=== PATIENT | female | born 1985 | race Asian ===

== ENCOUNTER 2017-01-27 07:06 | Day surgery (SDC) | payer MEDICAID, OTHER ==
--- NOTE | 2017-01-26 16:13 | PCM.PREANE ---
Preanesthetic Assessment - ANESTHESIA/TRANSFUSION/FAMILY HX Anesthesia/Transfusion History: No Prior Anesthesia Other Type of Anesthesia Reaction Comment: pt adopted, does not know if any family hx of anesthesia problems - REVIEW OF SYSTEMS Constitutional: Reports: no symptoms BLUNGER: Reports: no symptoms Respiratory: Reports: no symptoms Cardiovascular: Reports: no symptoms GI: Reports: no symptoms Other: Reports: none - PHYSICAL ASSESSMENT Height: 5 ft Weight: 68.946 kg ASA Class: 2 Mental Status: alert & oriented x3 Airway Class: Mallampati = 2 Dentition: Reports: normal dentition Thyro-Mental Finger Breadths: 3 Mouth Opening Finger Breadths: 3 ROM/Head Extension: full Respiratory Status: lungs clear to auscultation bilaterally Cardiovascular Status: regular rate & rhythm, normal S1, S2, no murmur, blood pressure WNL - ALLERGIES Allergies/Adverse Reactions: Allergies Allergy/AdvReac Type Severity Reaction Status Date / Time No Known Allergies Allergy Verified 07/17/16 18:48 - ANESTHESIA PLAN Free Text/Narrative:: Informed pt to use advair now and albuterol just prior to going to OR. Pt expresses understanding. Anesthesia Type Planned: general anesthesia, MAC - ACKNOWLEDGEMENTS Pt an appropriate candidate for the planned anesthesia: Yes Alternatives and risks of anesthesia discussed w pt/guardian: Yes Pt/Guardian understands and agree with anesthesia plan: Yes PreAnesthesia Questionnaire - Past Health History Medical/Surgical History: Denies Medical/Surgical History HEENT History: Reports: Other (see below) Other HEENT History: wears glasses Cardiovascular History: Reports: None Respiratory History: Reports: Asthma (3 Rx currently for asthma management ( she states it is well controlled on this)) Gastrointestinal History: Reports: Other (see below) Other Gastrointestinal History: occasional heartburn Genitourinary History: Reports: None 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: Musculoskeletal History: Reports: Other (see below) Other Musculoskeletal History: occasional back pain Neurological History: Reports: None Psychiatric History: Reports: Anxiety, Depression Endocrine/Metabolic History: Reports: Obesity/BMI 30+ Hematologic History: Reports: None Immunologic History: Reports: None Oncologic (Cancer) History: Reports: None Dermatologic History: Reports: None - Infectious Disease History Infectious Disease History: Reports: None - Past Surgical History Head Surgeries/Procedures: Reports: None - SUBSTANCE USE Smoking Status *Q: Current Some Day Smoker Tobacco Use Within Last Twelve Months: Cigarettes Second Hand Smoke Exposure: Yes Recreational Drug Use History: Yes - HOME MEDS Home Medications: Home Meds Sertraline HCl [Zoloft] 100 mg PO DAILY 07/17/16 [History] Albuterol [Proventil HFA] 1 - 2 puff INH ASDIRECTED PRN 01/23/17 [History] Fexofenadine HCl [Allergy Relief] 1 tab PO ASDIRECTED PRN 01/23/17 [History] Fluticasone Propionate [Flonase Allergy Relief] 1 - 2 spray NASBOTH DAILY [History] Fluticasone/Salmeterol [Advair 250-50 Diskus] 1 puff INH BID 01/23/17 [History] Ibuprofen [Motrin] 1 tab PO ASDIRECTED PRN 01/23/17 [History] Montelukast Sodium 1 tab PO DAILY 01/23/17 [History] traZODone HCl [Trazodone HCl] 200 tab PO BEDTIME 01/23/17 [History] - CURRENT (IN HOUSE) MEDS Current Meds: Current Medications Lactated Ringer's (Ringers, Lactated) 1,000 mls @ 125 mls/hr IV ASDIRECTED YOVANY Sodium Chloride (Saline Flush) 10 ml FLUSH ASDIRECTED PRN PRN Reason: Keep Vein Open Sodium Chloride (Saline Flush) 2.5 ml FLUSH ASDIRECTED PRN PRN Reason: Keep Vein Open
[~2017-01-27 07:06] MED LIST: Lactated Ringers 1,000 ML IV SCH; Sodium Chloride 0.9% 10 ML Syringe FLUSH PRN; Sodium Chloride 0.9% 2.5 ML Syringe FLUSH PRN
[2017-01-27] MEDS ORDERED: Ondansetron 4 MG/2 ML SDV ONE (07:16)
[2017-01-27] MEDS ORDERED: Midazolam 1 MG/ML 2 ML SDV ONE (07:16)
[2017-01-27] MEDS ORDERED: Lidocaine 2% 5 ML SDV ONE (07:16)
[2017-01-27] MEDS ORDERED: Propofol 200 MG/20 ML SDV ONE (07:16)
[2017-01-27] MEDS ORDERED: fentaNYL 100 MCG/2 ML SDV ONE (07:16)
[2017-01-27] MEDS ORDERED: Bupivacaine 0.25%/EPINEPHrine 1:200,000 10 ML SDV ONE (07:32)
[2017-01-27] MEDS ORDERED: Acetaminophen/HYDROcodone 325-5 MG Tab PO PRN (08:00)
[2017-01-27] MEDS ORDERED: Bupivacaine 0.25%/EPINEPHrine 1:200,000 10 ML SDV INJECT ONE (08:00)
[2017-01-27] MEDS ORDERED: ceFAZolin 2 GM in Premix Bag 1 BAG IV ONE (08:00)
[2017-01-27] MEDS ORDERED: ceFAZolin 1 GM Vial ONE (08:43)
[2017-01-27] MEDS ORDERED: HYDROmorphone 2 MG/ML Syringe ONE (09:42)
[2017-01-27] MEDS: fentaNYL 100 MCG/2 ML SDV IVPUSH PRN ×2 (10:19→10:24)
--- NOTE | 2017-01-27 11:40 | PCM.POSTAN ---
POST ANESTHESIA ASSESSMENT - MENTAL STATUS Mental Status: alert, oriented - RESPIRATORY Respiratory Status: respiratory rate WNL, airway patent, O2 saturation stable - CARDIOVASCULAR CV Status: pulse rate WNL, blood pressure stable - GASTROINTESTINAL GI Status: no symptoms - POST OP HYDRATION Hydration Status: adequate & stable
--- NOTE | 2017-01-27 11:40 | PCM48HPAN ---
Post Anesthesia Note - EVALUATION WITHIN 48HRS OF ANESTHETIC Vital Signs in Normal Range: Yes Patient Participated in Evaluation: Yes Respiratory Function Stable: Yes Airway Patent: Yes Cardiovascular Function Stable: Yes Hydration Status Stable: Yes Pain Control Satisfactory: Yes Nausea and Vomiting Control Satisfactory: Yes Mental Status Recovered: Yes
[2017-01-27 14:21] VITALS: BP 100/59
--- NOTE | 2017-01-30 08:49 | PCM.OPNOTE ---
- General Post-Op/Procedure Note Date of Surgery/Procedure: 01/27/17 Operative Procedure(s): right radial tunnel release Pre Op Diagnosis: right radial nerve compression Post-Op Diagnosis: Same Anesthesia Technique: General LMA, Local Primary Surgeon: Oliva Boogie Machine Try Out Setter: Tonya Demarco Complications: None Condition: Good
--- NOTE | 2017-01-30 13:03 | OR ---
Cancelled dictation MTDD
--- NOTE | 2017-01-30 17:12 | OR ---
SURGEON: DAIN NICHOLSON MD DATE OF PROCEDURE: 01/27/2017 PREOPERATIVE DIAGNOSIS: Right radial tunnel syndrome. POSTOPERATIVE DIAGNOSIS: Right radial tunnel syndrome. PROCEDURE: Right radial tunnel release, upper forearm. ANESTHESIA: General LMA and local anesthesia. PUBLIC HEALTH SANITARIAN TECHNICIAN: Tonya Demarco. INDICATIONS: Ms. Hale is a 31-year-old female with right radial nerve compression. Risks and benefits of release were discussed with her. She has previously had an injection that did provide some relief to this area but it recurred. She would like definitive management. Risks and benefits of release were discussed with her and she was in agreement to proceed. PROCEDURE IN DETAIL: After informed consent was obtained and placed on the chart, the patient was brought to the operating theater and laid in the supine position. After adequate general anesthesia was obtained, the area was prepped and draped in a normal fashion. Incision curvilinear on dorsal radial aspect of the forearm was planned. Dissection was carried down through the skin and subcutaneous tissues first using a #15 blade and then using scissor dissection to carefully protect the superficial branches of the nerve. Once adequately dissected, attention was then paid to the muscle layer. The extensor muscles were visualized and the change of color between the extensor was noted and dissection was carried in between. The superficial radial nerve was located here, and dissection was carried back proximally to the common juncture. The common radial nerve was located, and there were several vascular lesions tethering this. These were clamped and transected using a red clip. The deep branch was then followed to its compression under the supinator. The supinator was divided here, and the nerve was appreciated to be appropriately released without any areas of compression at the end of this. Several vascular lesions were noted, clamped, and transected. Once adequately released, the area was copiously irrigated. The tourniquet was desufflated. Meticulous hemostasis was ensured. The wound was then closed using deep Monocryl stitches and then a running 4-0 subcuticular for the skin. The patient tolerated this well. All counts of needles were correct at the end the case. FOLLOWUP INSTRUCTIONS: The patient will see us in clinic in 10 to 14 days or sooner if any problems, questions, or concerns. She was dressed with Steri-Strips, and 4-inch Harish wrap with ABD. She tolerated this well. MELISSA / MARCEL /[id number]
== END 2017-01-27 11:08 | disposition home or self-care (01) ==
LOC: MW.SDS 07:06
PROVIDERS: ATTEND Plastic Surgery
PROC: 01N60ZZ Release Radial Nerve, Open Approach (ICD-10-PCS; principal; 2017-01-27)
DX: G56.31 Lesion of radial nerve, right upper limb (principal); J45.909 Unspecified asthma, uncomplicated; F17.210 Nicotine dependence, cigarettes, uncomplicated; F32.9 Major depressive disorder, single episode, unspecified; F41.9 Anxiety disorder, unspecified; Z79.51 Long term (current) use of inhaled steroids; Z79.899 Other long term (current) drug therapy
CPT/HCPCS: 64708; 81025; A9270; J0690; J1170; J2250; J2405; J3010; J7120; 01810; J2704

== ENCOUNTER 2020-05-18 07:41 | Day surgery (SDC) | payer BC, MEDICAID ==
[~2020-05-18 07:41] MED LIST changes: +Bupivacaine 0.25% 10 ML SDV ONE; +Desflurane 240 ML Bottle ONE; +Dexamethasone 4 MG/ML 5 ML MDV ONE; +Glycopyrrolate 0.2 MG/ML SDV ONE; +Ketorolac 30 MG/ML SDV ONE; -Lactated Ringers 1,000 ML IV SCH; +Methylene Blue 50 MG/10 ML Ampule ONE; +Midazolam 1 MG/ML 2 ML SDV ONE; +Morphine 10 MG/ML Syringe ONE; +Ondansetron 4 MG/2 ML SDV ONE; +Propofol 200 MG/20 ML SDV ONE; +Rocuronium Bromide 50 MG/5 ML Syringe ONE; -Sodium Chloride 0.9% 10 ML Syringe FLUSH PRN; -Sodium Chloride 0.9% 2.5 ML Syringe FLUSH PRN; +Sodium Chloride 0.9% 20 ML ONE; +Sugammadex Sodium 200 MG/2 ML VIAL ONE; +ceFAZolin 1 GM Vial ONE; +fentaNYL 100 MCG/2 ML SDV ONE
[2020-05-18] MEDS: Lactated Ringers 1,000 ML IV SCH ×2 (08:08→20:09)
--- NOTE | 2020-05-18 08:11 | PCM.PREANE ---
Preanesthetic Assessment - Anesthesia/Transfusion/Family Hx Anesthesia History: Prior Anesthesia Without Reaction Other Type of Anesthesia Reaction Comment: pt adopted, does not know if any family hx of anesthesia problems Family History of Anesthesia Reaction: No Transfusion History: No Prior Transfusion(s) Intubation History: Unknown - Review of Systems General: No Symptoms Pulmonary: No Symptoms Cardiovascular: No Symptoms Gastrointestinal: No Symptoms Neurological: No Symptoms Other: Reports: None - Physical Assessment Vital Signs: Last Vital Signs Temp 36.4 C 05/18/20 07:50 Pulse 83 05/18/20 07:50 Resp 16 05/18/20 07:50 BP 142/106 H 05/18/20 07:50 Pulse Ox 97 05/18/20 07:50 Height: 5 ft 1 in Weight: 83.461 kg ASA Class: 2 Mental Status: Alert & Oriented x3 Airway Class: Mallampati = 1 Dentition: Reports: Normal Dentition Thyro-Mental Finger Breadths: 3 Mouth Opening Finger Breadths: 3 ROM/Head Extension: Full Lungs: Clear to Auscultation, Normal Respiratory Effort Cardiovascular: Regular Rate, Regular Rhythm - Allergies Allergies/Adverse Reactions: Allergies Allergy/AdvReac Type Severity Reaction Status Date / Time animal dander Allergy Difficulty Verified 05/12/20 08:37 Breathing - Blood Blood Available: No - Anesthesia Plan Pre-Op Medication Ordered: None - Acknowledgements Anesthesia Type Planned: General Anesthesia Pt an Appropriate Candidate for the Planned Anesthesia: Yes Alternatives and Risks of Anesthesia Discussed w Pt/Guardian: Yes Pt/Guardian Understands and Agrees with Anesthesia Plan: Yes PreAnesthesia Questionnaire - Past Health History Medical/Surgical History: Denies Medical/Surgical History HEENT History: Reports: Allergic Rhinitis, Other (See Below) Other HEENT History: wears glasses Cardiovascular History: Reports: None Respiratory History: Reports: Asthma (moderate/severe) Gastrointestinal History: Reports: GERD Other Gastrointestinal History: occasional heartburn Genitourinary History: Reports: None 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 radial tunnel syndrome) Psychiatric History: Reports: Depression Endocrine/Metabolic History: Reports: Obesity/BMI 30+ Hematologic History: Reports: None Immunologic History: Reports: None Oncologic (Cancer) History: Reports: None Dermatologic History: Reports: None - Infectious Disease History Infectious Disease History: Reports: None - Past Surgical History Head Surgeries/Procedures: Reports: None HEENT Surgical History: Reports: None Cardiovascular Surgical History: Reports: None Respiratory Surgical History: Reports: None GI Surgical History: Reports: None Female Surgical History: Reports: None Endocrine Surgical History: Reports: None Neurological Surgical History: Reports: None Musculoskeletal Surgical History: Reports: Other (See Below) Other Musculoskeletal Surgeries/Procedures:: rt arm radial nerve release 02/10 Oncologic Surgical History: Reports: None Dermatological Surgical History: Reports: None - SUBSTANCE USE Smoking Status *Q: Current Every Day Smoker (6-10 cigarettes per day) Tobacco Use Within Last Twelve Months: Cigarettes - HOME MEDS Home Medications: Home Meds Fluticasone Propion/Salmeterol [Advair 250-50 Diskus] 1 puff INH BID 01/23/17 [History] Fluticasone Propionate [Flonase Allergy Relief] 1 - 2 spray NASBOTH DAILY 01/23/17 [History] Montelukast Sodium 1 tab PO DAILY 01/23/17 [History] Albuterol Sulfate [Proair Respiclick] 2 puff INH Q6H PRN 05/12/20 [History] Cetirizine HCl [Allergy Relief] 1 tab PO DAILY 05/12/20 [History] Multivitamin [Multivitamins] 1 tab PO DAILY 05/12/20 [History] Omeprazole Magnesium [Prilosec Otc] 1 tab PO ASDIRECTED PRN 05/12/20 [History] desogestreL-ethinyl estradioL [Reclipsen 28 Day Tablet] 1 tab PO DAILY 05/12/20 [History] ePHEDrine Sulfate/Guaifenesin [Bronkaid Dual Action Caplet] 1 tab PO DAILY PRN 05/12/20 [History] - CURRENT (IN HOUSE) MEDS Current Meds: Current Medications Discontinued Medications Bupivacaine HCl (Sensorcaine-Mpf 0.25%) Confirm Administered Dose 10 ml .ROUTE .STK-MED ONE Stop: 05/18/20 07:34 Cefazolin Sodium (Ancef) Confirm Administered Dose 2 gm .ROUTE .STK-MED ONE Stop: 05/18/20 07:23 Desflurane (Suprane) Confirm Administered Dose 240 ml .ROUTE .STK-MED ONE Stop: 05/18/20 07:29 Dexamethasone (Dexamethasone) Confirm Administered Dose 20 mg .ROUTE .STK-MED ONE Stop: 05/18/20 07:21 Fentanyl (Sublimaze) Confirm Administered Dose 100 mcg .ROUTE .STK-MED ONE Stop: 05/18/20 07:20 Glycopyrrolate (Robinul) Confirm Administered Dose 0.2 mg .ROUTE .STK-MED ONE Stop: 05/18/20 07:22 Sodium Chloride (Normal Saline) Confirm Administered Dose 20 mls @ as directed .ROUTE .STK-MED ONE Stop: 05/18/20 07:23 Acetaminophen (Ofirmev) Confirm Administered Dose 100 mls @ as directed .ROUTE .STK-MED ONE Stop: 05/18/20 07:29 Ketorolac Tromethamine (Toradol) Confirm Administered Dose 30 mg .ROUTE .STK-MED ONE Stop: 05/18/20 07:25 Lidocaine HCl (Xylocaine-Mpf 1%) Confirm Administered Dose 5 ml .ROUTE .STK-MED ONE Stop: 05/18/20 07:20 Methylene Blue (Provayblue) Confirm Administered Dose 50 mg .ROUTE .STK-MED ONE Stop: 05/18/20 07:34 Midazolam HCl (Versed 1 Mg/Ml) Confirm Administered Dose 2 mg .ROUTE .STK-MED ONE Stop: 05/18/20 07:20 Morphine Sulfate (Morphine) Confirm Administered Dose 10 mg .ROUTE .STK-MED ONE Stop: 05/18/20 07:31 Ondansetron HCl (Zofran) Confirm Administered Dose 4 mg .ROUTE .STK-MED ONE Stop: 05/18/20 07:20 Phenazopyridine HCl (Pyridium) 100 mg PO ONETIME ONE Stop: 05/18/20 07:36 Propofol (Diprivan 20 Ml) Confirm Administered Dose 400 mg .ROUTE .STK-MED ONE Stop: 05/18/20 07:20 Rocuronium Cavour (Rocuronium Cavour) Confirm Administered Dose 100 mg .ROUTE .STK-MED ONE Stop: 05/18/20 07:21 Sugammadex Sodium (Bridion) Confirm Administered Dose 200 mg .ROUTE .STK-MED ONE Stop: 05/18/20 07:29
[2020-05-18] MEDS: Phenazopyridine 200 MG Tab PO ONE ×2 (08:40→12:31)
[2020-05-18 08:47] LABS: BLOOD UREA NITROGEN,BUN 12 mg/dL (7.0-18.0); CARBON DIOXIDE,CO2 22.4 mmol/L (21.0-32.0); CHLORIDE,CL 104 mmol/L (98-107); GLUCOSE RANDOM 104 mg/dL (74-106); POTASSIUM,K 3.8 mmol/L (3.5-5.1); SODIUM,NA 136 mmol/L (136-145)
[2020-05-18] MEDS ORDERED: fentaNYL 100 MCG/2 ML SDV ONE (09:10)
[2020-05-18] MEDS ORDERED: Fluorescein 5 ML Vial ONE (09:26)
[2020-05-18] MEDS ORDERED: Morphine 4 MG/ML Syringe IVPUSH ONE (09:59)
[2020-05-18] MEDS ORDERED: Ondansetron 4 MG/2 ML SDV IVPUSH PRN (11:13)
[2020-05-18] MEDS ORDERED: Ketorolac 30 MG/ML SDV IVPUSH PRN (11:13)
[2020-05-18] MEDS ORDERED: Ketorolac 30 MG/ML SDV IVPUSH ONE (11:13)
[2020-05-18] MEDS ORDERED: Promethazine 25 MG/ML SDV IM PRN (11:13)
[2020-05-18] MEDS ORDERED: Acetaminophen/oxyCODONE 325-5 MG Tab PO PRN (11:13)
[2020-05-18] MEDS ORDERED: OMEPRAZOLE MAGNESIUM PO PRN (11:16)
[2020-05-18] MEDS ORDERED: Non-Formulary Medication 1 Each (Albuterol Sulfate [Proair Respiclick] 2 PUFF) INH PRN (11:16)
--- NOTE | 2020-05-18 11:21 | PCM.OPNOTE ---
- General Post-Op/Procedure Note Date of Surgery/Procedure: 05/18/20 Operative Procedure(s): Laparoscopic-assisted vaginal hysterectomy, bilateral salpingectomy, cystoscopy Findings: 8-week uterus, sound to 7cm Normal-appearing fallopian tubes and ovaries Suspected endometriotic lesion posterior cul-de-sac Bilateral ureteral efflux and normal bladder Pre Op Diagnosis: 35yo with heavy menstruation and dysmenorrhea Post-Op Diagnosis: 35yo with heavy menstruation and dysmenorrhea. Suspected endometriosis Anesthesia Technique: General ET Tube Primary Surgeon: Ivy Ac Anesthesia Provider: Ann Graham Fish Boning Machine Feeder: Nicky Short Pathology: Uterus, cervix, bilateral fallopian tubes Fluid Replacement, Intraop: 1,500 Output, Urine Amount: 300 EBL in mLs: 200 Complications: None Condition: Good
[2020-05-18] MEDS ORDERED: fentaNYL 100 MCG/2 ML SDV IVPUSH PRN (11:23)
[2020-05-18] MEDS: HYDROmorphone 2 MG/ML Syringe IVPUSH PRN ×2 (11:52→12:03)
--- NOTE | 2020-05-18 12:14 | PCM.POSTAN ---
POST ANESTHESIA ASSESSMENT - MENTAL STATUS Mental Status: Alert, Oriented - VITAL SIGNS Vital Signs: Last Vital Signs Temp 36.6 C 05/18/20 11:07 Pulse 82 05/18/20 12:12 Resp 13 05/18/20 12:12 BP 106/66 05/18/20 12:12 Pulse Ox 96 05/18/20 12:12 - RESPIRATORY Respiratory Status: Respiratory Rate WNL, Airway Patent, O2 Saturation Stable - CARDIOVASCULAR CV Status: Pulse Rate WNL, Blood Pressure Stable - GASTROINTESTINAL GI Status: No Symptoms - PAIN Pain Score: 3 - POST OP HYDRATION Hydration Status: Adequate & Stable - OBSERVATIONS Free Text/Narrative:: No anesthesia problems
--- NOTE | 2020-05-18 14:20 | OR ---
SURGEON: Ivy Ac MD DATE OF PROCEDURE: 05/18/2020 PREOPERATIVE DIAGNOSES: 1. A 35-year-old G1, P1. 2. Heavy menstruation. 3. Dysmenorrhea. POSTOPERATIVE DIAGNOSES: 1. A 35-year-old G1, P1. 2. Heavy menstruation. 3. Dysmenorrhea. 4. Suspected endometriosis. PROCEDURES: Laparoscopic-assisted vaginal hysterectomy, bilateral salpingectomy, cystoscopy. PRIMARY SURGEON: Ivy Ac MD DOORS PREFITTER: Nicky Short M.D. ANESTHESIA: General endotracheal by Dr. Graham. URINE OUTPUT: 300 mL. IV FLUIDS: 1500 mL LR. ESTIMATED BLOOD LOSS: 200 mL. PROPHYLAXIS: 2 g of Ancef. FINDINGS: Uterus sounded 7 cm. Normal-appearing ovaries and fallopian tubes. Suspect endometriotic lesion in the posterior cul-de-sac. Bilateral ureteral efflux. INDICATIONS: This is a 35-year-old, G1, P1, who presented for planned surgery due to heavy menstruation and dysmenorrhea. The patient has failed conservative management with oral contraceptives and nonsteroidal anti-inflammatory drugs; she declined additional conservative measures. She desired hysterectomy for definitive management of her heavy periods and pain. Prior to surgery, the risks, benefits, and alternatives of the surgery were discussed with the patient. DESCRIPTION OF PROCEDURE: The patient was taken to the operating room where general anesthesia was obtained. She was placed in the dorsal lithotomy position with legs in Yellofin stirrups. She was prepared and draped in normal sterile fashion. Rowe catheter was inserted. A Graves speculum was placed in the vagina. The anterior lip of the cervix was grasped with Allis clamp. The uterus was sounded to 7 cm. A uterine manipulator was introduced. The surgeon's gloves were changed. 0.25% bupivacaine was infiltrated into the infraumbilical fold. A small vertical skin incision was made in the umbilical fold. A 5 mm trocar was inserted into the abdomen under direct laparoscopic visualization. The abdomen was insufflated with carbon dioxide gas to a pressure of 15 mmHg. Pelvic anatomy was as noted above. Two 5 mm trocars were inserted in the bilateral lower quadrants under direct laparoscopic visualization. The Trendelenburg position was obtained to facilitate moving bowel and omentum out of the pelvis. The uterus was elevated from the pelvis using a uterine manipulator. The ovaries were retracted and peristalsis of the ureters was noted. The left fallopian tube was sequentially clamped, coagulated, and transected with the 5 mm LigaSure device to the cornua. The round ligament was transected using the LigaSure device. The vesicouterine peritoneum was opened using the LigaSure device and the bladder was dissected off the lower uterine segment through the vagina. The uterine vessels were identified along the uterus and the LigaSure device was used to coagulate and transect the uterine vessels. The procedure was repeated on the right side. Laparoscopic resections were completed at this point, and the pneumoperitoneum was released. The patient was repositioned with hips flexed in the dorsal lithotomy position. The uterine manipulator was removed. The cervix was grasped with a Zi tenaculum. A circumferential incision around the cervix was made with the Bovie. Blunt and sharp dissection was performed along the appropriate plane. The posterior cul-de-sac was entered sharply with Nguyen scissors. Bloody peritoneal fluid was noted. Significant uterine descent was noted. The anterior cul-de-sac was entered easily. The uterosacral and cardinal ligaments were sequentially clamped, transected, and suture ligated. The uterus and fallopian tubes were delivered intact through the vagina and sent to pathology. The vaginal angles were transfixed to the uterosacral ligaments. Figure-of- eight sutures were used to obtain hemostasis of the pedicles where bleeding was noted. The vaginal cuff was closed with a running lock stitch of 0 Vicryl suture. A 70-degree cystoscope was introduced through the urethra into the bladder. The ureteral orifices were noted to have bilateral efflux, fluorescein-stained urine. A systematic inspection of the bladder was completed and there were no obvious lesions. The pneumoperitoneum was re-established and the pelvis was thoroughly inspected. No active bleeding noted. The pelvis was irrigated. All instruments were removed from the abdomen and vagina. All counts were correct x2. The patient was taken to recovery room in stable condition. [id number] / MODL /[id number] RICK
[2020-05-18] MEDS: Morphine 4 MG/ML Syringe IVPUSH PRN ×2 (14:59→18:12)
[2020-05-18] MEDS: Acetaminophen/oxyCODONE 325-5 MG Tab PO PRN ×3 (16:13→22:04)
[2020-05-18] MEDS ORDERED: ALBUTEROL SULFATE 90 MCG INH PRN (16:45)
[2020-05-18] MEDS ORDERED: Omeprazole 20 MG Cap.CR PO PRN (16:45)
--- NOTE | 2020-05-18 17:27 | PCM.SN.2 ---
- Free Text/Narrative Note: Patient awake in room, reports cramping & sharp abdominal pain. Tolerating water intake. Having nausea, about to receive nausea medications. Pain has not decreased significantly with morphine & toradol. Will add B&O suppositories to pain medication regimen.
[2020-05-18] MEDS: Belladonna Alkaloids/Opium 16.2-30 MG Supp RECTAL SCH ×2 (17:59→21:35)
[2020-05-18] MEDS ORDERED: Ibuprofen 800 MG Tab ONE (19:59)
[2020-05-18] MEDS: Docusate Sodium 100 MG Cap PO SCH (21:35)
[2020-05-18] MEDS: Fluticasone/Salmeterol 250-50 MCG Inhalation Powder 14/Diskus INH SCH (21:36)
[2020-05-19] MEDS: Acetaminophen/oxyCODONE 325-5 MG Tab PO PRN ×2 (02:22→06:37)
[2020-05-19] MEDS: Belladonna Alkaloids/Opium 16.2-30 MG Supp RECTAL SCH ×3 (05:21→09:19)
[2020-05-19 06:44] LABS: BLOOD UREA NITROGEN,BUN 7 mg/dL (7.0-18.0); CARBON DIOXIDE,CO2 25.8 mmol/L (21.0-32.0); CHLORIDE,CL 102 mmol/L (98-107); GLUCOSE RANDOM 112 mg/dL (74-106); POTASSIUM,K 3.7 mmol/L (3.5-5.1); SODIUM,NA 137 mmol/L (136-145)
--- NOTE | 2020-05-19 07:04 | PCM48HPAN ---
Post Anesthesia Note - EVALUATION WITHIN 48HRS OF ANESTHETIC Vital Signs in Normal Range: Yes Patient Participated in Evaluation: Yes Respiratory Function Stable: Yes Airway Patent: Yes Cardiovascular Function Stable: Yes Hydration Status Stable: Yes Pain Control Satisfactory: Yes Nausea and Vomiting Control Satisfactory: Yes Mental Status Recovered: Yes Vital Signs: Last Vital Signs Temp 36.5 C 05/19/20 06:29 Pulse 79 05/19/20 06:29 Resp 18 05/19/20 06:29 BP 122/82 05/19/20 06:29 Pulse Ox 90 L 05/19/20 06:29 - COMMENTS/OBSERVATIONS Free Text/Narrative:: Pt reports adequate pain control (3/10 currently), ambulating to restroom without difficulty. Intermittent nausea yesterday has since resolved. Denies anesthesia-related questions/concerns, appears stable.
[2020-05-19 07:43] VITALS: BP 123/77; PULSE 80
--- NOTE | 2020-05-19 08:37 | PCM.PN ---
- General Info Date of Service: 05/19/20 Functional Status: Reports: Pain Controlled, Tolerating Diet, Ambulating, Urinating - Review of Systems General: Reports: No Symptoms HEENT: Reports: No Symptoms Pulmonary: Reports: No Symptoms Cardiovascular: Reports: No Symptoms Gastrointestinal: Reports: No Symptoms Genitourinary: Reports: No Symptoms Musculoskeletal: Reports: No Symptoms Skin: Reports: No Symptoms Neurological: Reports: No Symptoms Psychiatric: Reports: No Symptoms - Patient Data Vitals - Most Recent: Last Vital Signs Temp 36.8 C 05/19/20 07:30 Pulse 80 05/19/20 07:30 Resp 17 05/19/20 07:30 BP 123/77 05/19/20 07:30 Pulse Ox 94 L 05/19/20 07:30 Weight - Most Recent: 83.461 kg I&O - Last 24 Hours: Intake & Output 05/18/20 05/19/20 05/19/20 22:59 06:59 14:59 Intake Total 1300 1320 Output Total 140 2750 Balance 1160 -1430 Lab Results Last 24 Hours: Laboratory Results - last 24 hr 05/18/20 05/18/20 05/18/20 Range/Units 08:16 08:16 08:16 WBC 6.49 (4.0-11.0) K/uL RBC 4.13 L (4.30-5.90) M/uL Hgb 13.1 (12.0-16.0) g/dL Hct 39.2 (36.0-46.0) % MCV 94.9 (80.0-98.0) fL MCH 31.7 (27.0-32.0) pg MCHC 33.4 (31.0-37.0) g/dL RDW Std Deviation 41.9 (28.0-62.0) fl RDW Coeff of Mert 12 (11.0-15.0) % Plt Count 233 (150-400) K/uL MPV 9.60 (7.40-12.00) fL Neut % (Auto) (48.0-80.0) % Lymph % (Auto) (16.0-40.0) % [place] % (Auto) (0.0-15.0) % Eos % (Auto) (0.0-7.0) % Baso % (Auto) (0.0-1.5) % Neut # (Auto) (1.4-5.7) K/uL Lymph # (Auto) (0.6-2.4) K/uL [place] # (Auto) (0.0-0.8) K/uL Eos # (Auto) (0.0-0.7) K/uL Baso # (Auto) (0.0-0.1) K/uL Nucleated RBC % 0.0 /100WBC Nucleated RBCs # 0 K/uL Sodium 136 (136-145) mmol/L Potassium 3.8 (3.5-5.1) mmol/L Chloride 104 (98-107) mmol/L Carbon Dioxide 22.4 (21.0-32.0) mmol/L BUN 12 (7.0-18.0) mg/dL Creatinine 0.7 (0.6-1.0) mg/dL Est Cr Clr Drug Dosing 86.26 mL/min Estimated GFR (MDRD) > 60.0 ml/min Glucose 104 (74-106) mg/dL Calcium 8.7 (8.5-10.1) mg/dL HCG, Qual NEGATIVE (NEG) Blood Type Antibody Screen 05/18/20 05/19/20 05/19/20 Range/Units 08:20 06:10 06:10 WBC 12.90 H (4.0-11.0) K/uL RBC 3.50 L (4.30-5.90) M/uL Hgb 11.2 L (12.0-16.0) g/dL Hct 33.8 L (36.0-46.0) % MCV 96.6 (80.0-98.0) fL MCH 32.0 (27.0-32.0) pg MCHC 33.1 (31.0-37.0) g/dL RDW Std Deviation 42.6 (28.0-62.0) fl RDW Coeff of Mert 12 (11.0-15.0) % Plt Count 236 (150-400) K/uL MPV 9.70 (7.40-12.00) fL Neut % (Auto) 81.7 H (48.0-80.0) % Lymph % (Auto) 12.2 L (16.0-40.0) % [place] % (Auto) 6.0 (0.0-15.0) % Eos % (Auto) 0.0 (0.0-7.0) % Baso % (Auto) 0.1 (0.0-1.5) % Neut # (Auto) 10.6 H (1.4-5.7) K/uL Lymph # (Auto) 1.6 (0.6-2.4) K/uL [place] # (Auto) 0.8 (0.0-0.8) K/uL Eos # (Auto) 0.0 (0.0-0.7) K/uL Baso # (Auto) 0.0 (0.0-0.1) K/uL Nucleated RBC % 0.0 /100WBC Nucleated RBCs # 0 K/uL Sodium 137 (136-145) mmol/L Potassium 3.7 (3.5-5.1) mmol/L Chloride 102 (98-107) mmol/L Carbon Dioxide 25.8 (21.0-32.0) mmol/L BUN 7 (7.0-18.0) mg/dL Creatinine 1.0 (0.6-1.0) mg/dL Est Cr Clr Drug Dosing 60.38 mL/min Estimated GFR (MDRD) > 60.0 ml/min Glucose 112 H (74-106) mg/dL Calcium 8.8 (8.5-10.1) mg/dL HCG, Qual (NEG) Blood Type A POSITIVE Antibody Screen NEGATIVE Med Orders - Current: Current Medications Belladonna Alkaloids/Opium (B & O Supprettes No. 15a) 1 supp RECTAL Q4H [facility] Last Admin: 05/19/20 05:25 Dose: Not Given Documented by: Docusate Sodium (Colace) 100 mg PO BID [facility] Last Admin: 05/18/20 21:35 Dose: 100 mg Documented by: Lactated Ringer's (Ringers, Lactated) 1,000 mls @ 100 mls/hr IV ASDIRECTED [facility] Last Admin: 05/18/20 20:09 Dose: 100 mls/hr Documented by: Ibuprofen (Motrin) 800 mg PO Q8H PRN PRN Reason: Pain (mild 1-3) Last Admin: 05/18/20 20:08 Dose: 800 mg Documented by: Ketorolac Tromethamine (Toradol) 30 mg IVPUSH Q6H PRN PRN Reason: Pain (severe 7-10) Stop: 05/19/20 11:13 Last Admin: 05/18/20 14:02 Dose: 30 mg Documented by: Montelukast Sodium (Singulair) 10 mg PO DAILY [facility] Morphine Sulfate (Morphine) 4 mg IVPUSH Q2H PRN PRN Reason: Pain (severe 7-10) Last Admin: 05/18/20 18:12 Dose: 4 mg Documented by: Omeprazole (Omeprazole) 20 mg PO ACBREAKFAST PRN PRN Reason: Heartburn Last Admin: 05/18/20 17:18 Dose: 20 mg Documented by: Ondansetron HCl (Zofran) 4 mg IVPUSH Q6H PRN PRN Reason: Nausea/Vomiting Last Admin: 05/18/20 17:18 Dose: 4 mg Documented by: Oxycodone/Acetaminophen (Percocet 325-5 Mg) 1 tab PO Q4H PRN PRN Reason: Pain (moderate 4-6) Oxycodone/Acetaminophen (Percocet 325-5 Mg) 2 tab PO Q4H PRN PRN Reason: Pain (moderate 4-6) Last Admin: 05/19/20 06:37 Dose: 2 tab Documented by: Albuterol Sulfate [ Proair Respiclick] 90mcg 2 each INH Q6H PRN PRN Reason: Wheezing Promethazine HCl (Phenergan) 25 mg IM Q6H PRN PRN Reason: Nausea/Vomiting Fluticasone/Salmeterol (Advair Diskus 250-50) 1 puff INH BID [facility] Last Admin: 05/18/20 21:36 Dose: 1 puff Documented by: Discontinued Medications Bupivacaine HCl (Sensorcaine-Mpf 0.25%) Confirm Administered Dose 10 ml .ROUTE .STK-MED ONE Stop: 05/18/20 07:34 Cefazolin Sodium (Ancef) Confirm Administered Dose 2 gm .ROUTE .STK-MED ONE Stop: 05/18/20 07:23 Desflurane (Suprane) Confirm Administered Dose 240 ml .ROUTE .STK-MED ONE Stop: 05/18/20 07:29 Dexamethasone (Dexamethasone) Confirm Administered Dose 20 mg .ROUTE .STK-MED ONE Stop: 05/18/20 07:21 Fentanyl (Sublimaze) Confirm Administered Dose 100 mcg .ROUTE .STK-MED ONE Stop: 05/18/20 07:20 Fentanyl (Sublimaze) Confirm Administered Dose 100 mcg .ROUTE .STK-MED ONE Stop: 05/18/20 09:11 Fentanyl (Sublimaze) 50 - 100 mcg IVPUSH Q5M PRN PRN Reason: Pain (severe 7-10) Fluorescein Sodium (Ak-Fluor) Confirm Administered Dose 5 ml .ROUTE .STK-MED ONE Stop: 05/18/20 09:27 Glycopyrrolate (Robinul) Confirm Administered Dose 0.2 mg .ROUTE .STK-MED ONE Stop: 05/18/20 07:22 Hydromorphone HCl (Dilaudid) 1 - 2 mg IVPUSH ONETIME PRN PRN Reason: Pain Last Admin: 05/18/20 12:03 Dose: 1 mg Documented by: Sodium Chloride (Normal Saline) Confirm Administered Dose 20 mls @ as directed .ROUTE .STK-MED ONE Stop: 05/18/20 07:23 Acetaminophen (Ofirmev) Confirm Administered Dose 100 mls @ as directed .ROUTE .STK-MED ONE Stop: 05/18/20 07:29 Ibuprofen (Motrin) Confirm Administered Dose 800 mg .ROUTE .STK-MED ONE Stop: 05/18/20 20:00 Last Admin: 05/18/20 22:04 Dose: Not Given Documented by: Ketorolac Tromethamine (Toradol) Confirm Administered Dose 30 mg .ROUTE .STK-MED ONE Stop: 05/18/20 07:25 Ketorolac Tromethamine (Toradol) 30 mg IVPUSH ONETIME ONE Stop: 05/18/20 11:14 Last Admin: 05/18/20 12:31 Dose: Not Given Documented by: Lidocaine HCl (Xylocaine-Mpf 1%) Confirm Administered Dose 5 ml .ROUTE .STK-MED ONE Stop: 05/18/20 07:20 Lidocaine HCl (Xylocaine-Mpf 1%) Confirm Administered Dose 5 ml .ROUTE .STK-MED ONE Stop: 05/18/20 10:57 Methylene Blue (Provayblue) Confirm Administered Dose 50 mg .ROUTE .STK-MED ONE Stop: 05/18/20 07:34 Midazolam HCl (Versed 1 Mg/Ml) Confirm Administered Dose 2 mg .ROUTE .STK-MED ONE Stop: 05/18/20 07:20 Morphine Sulfate (Morphine) Confirm Administered Dose 10 mg .ROUTE .STK-MED ONE Stop: 05/18/20 07:31 Morphine Sulfate (Morphine) 4 mg IVPUSH ONETIME ONE Stop: 05/18/20 10:00 Last Admin: 05/18/20 11:23 Dose: 4 mg Documented by: Non-Formulary Medication (Albuterol Sulfate [Proair Respiclick]) 2 puff INH Q6H PRN PRN Reason: Wheezing Non-Formulary Medication (Omeprazole Magnesium [Prilosec Otc]) 1 tab PO ASDIRECTED PRN PRN Reason: Heartburn Ondansetron HCl (Zofran) Confirm Administered Dose 4 mg .ROUTE .STK-MED ONE Stop: 05/18/20 07:20 Phenazopyridine HCl (Pyridium) 100 mg PO ONETIME ONE Stop: 05/18/20 07:36 Last Admin: 05/18/20 12:31 Dose: Not Given Documented by: Propofol (Diprivan 20 Ml) Confirm Administered Dose 400 mg .ROUTE .STK-MED ONE Stop: 05/18/20 07:20 Rocuronium Tresckow (Rocuronium Tresckow) Confirm Administered Dose 100 mg .ROUTE .STK-MED ONE Stop: 05/18/20 07:21 Sugammadex Sodium (Bridion) Confirm Administered Dose 200 mg .ROUTE .STK-MED ONE Stop: 05/18/20 07:29 - Exam General: Alert, Oriented Neck: Supple Lungs: Normal Respiratory Effort GI/Abdominal Exam: Soft, No Distention, Tender (appropriately tender to palpation) Extremities: No Pedal Edema Skin: Warm, Dry, Intact Wound/Incisions: Dressing Dry and Intact Psy/Mental Status: Alert, Normal Affect, Normal Mood Sepsis Event Note - Evaluation Sepsis Screening Result: No Definite Risk - Focused Exam Vital Signs: Vital Signs Temp Pulse Resp BP Pulse Ox 05/19/20 07:30 36.8 C 80 17 123/77 94 L 05/19/20 06:29 36.5 C 79 18 122/82 90 L 05/19/20 01:00 36.7 C 80 16 125/77 97 Date Exam was Performed: 05/19/20 Time Exam was Performed: 08:35 - Problem List & Annotations (1) S/P laparoscopic assisted vaginal hysterectomy (LAVH) SNOMED Code(s): 861964882, 22094028, 706949956 Code(s): Z90.710 - ACQUIRED ABSENCE OF BOTH CERVIX AND UTERUS Status: Acute Current Visit: Yes - Problem List Review Problem List Initiated/Reviewed/Updated: Yes - My Orders Last 24 Hours: My Active Orders 05/18/20 07:36 SCD [Sequential Compression Device] [OM.PC] Routine 05/18/20 Lunch Regular Diet [DIET] 05/18/20 11:13 Patient Status [ADT] Routine Notify Provider Intake and Out [RC] ASDIRECTED Notify Provider Vital Signs [RC] ASDIRECTED Oxygen Therapy [RC] ASDIRECTED RT Incentive Spirometry [RC] Q2HWA Up With Assistance [RC] PER UNIT ROUTINE Up ad Sakina [RC] PER UNIT ROUTINE Vital Signs [RC] Q4H Acetaminophen/oxyCODONE [Percocet 325-5 MG] 1 tab PO Q4H PRN Acetaminophen/oxyCODONE [Percocet 325-5 MG] 2 tab PO Q4H PRN Ketorolac [Toradol] 30 mg IVPUSH Q6H PRN Morphine 4 mg IVPUSH Q2H PRN Ondansetron [Zofran] 4 mg IVPUSH Q6H PRN Promethazine [Phenergan] 25 mg IM Q6H PRN Peripheral IV Discontinue [OM.PC] Routine Sequential Compression Device [OM.PC] Per Unit Routine Resuscitation Status Routine 05/18/20 11:14 Antiembolic Devices [RC] PER UNIT ROUTINE Intake and Output [RC] Q12H Pulse Oximetry [RC] PER UNIT ROUTINE Abdominal Binder [OM.PC] Per Unit Routine 05/18/20 11:17 RT Post Treatment Assessment [RC] Click to Edit 05/18/20 16:45 Omeprazole 20 mg PO ACBREAKFAST PRN Patient's Own Medication [Ptom] 2 each INH Q6H PRN 05/18/20 17:30 Belladonna/Opium [B & O Supprettes No. 15A] 1 supp RECTAL Q4H 05/18/20 21:00 Docusate Sodium [Colace] 100 mg PO BID Fluticasone/Salmeterol [Advair Diskus 250-50] 1 puff INH BID 05/19/20 08:35 Ready for Discharge [RC] PER UNIT ROUTINE 05/19/20 09:00 Montelukast [Singulair] 10 mg PO DAILY 05/19/20 11:15 Ibuprofen [Motrin] 800 mg PO Q8H PRN - Assessment Assessment:: 35yo s/p ESTEPHANIAH, BS, cysto for heavy menstruation & dysmenorrhea, POD#1 - Plan Plan:: Patient meeting all postoperative milestones. Discharge home today; reviewed discharge instructions. All questions answered.
[2020-05-19] MEDS ORDERED: Montelukast 10 MG Tab PO SCH (09:00)
[2020-05-19] MEDS: Docusate Sodium 100 MG Cap PO SCH (09:11)
[2020-05-19] MEDS: Fluticasone/Salmeterol 250-50 MCG Inhalation Powder 14/Diskus INH SCH (09:19)
[2020-05-19] MEDS ORDERED: Ibuprofen 800 MG Tab PO PRN (11:15)
== END 2020-05-19 09:25 | disposition home or self-care (01) ==
LOC: MW.SDS 07:41 → MW.MS 11:13 → UNDOADMOB 11:13 → UNDODISOB 05-19 09:25 → MW.SDS 05-19 09:25
PROVIDERS: ATTEND Obstetrics & Gynecology
DX: N92.1 Excessive and frequent menstruation with irregular cycle (principal); N94.6 Dysmenorrhea, unspecified; J45.909 Unspecified asthma, uncomplicated; K21.9 Gastro-esophageal reflux disease without esophagitis; E66.9 Obesity, unspecified; F32.9 Major depressive disorder, single episode, unspecified; F17.210 Nicotine dependence, cigarettes, uncomplicated; Z79.51 Long term (current) use of inhaled steroids; Z79.899 Other long term (current) drug therapy; Z90.710 Acquired absence of both cervix and uterus; Z68.34 Body mass index [BMI] 34.0-34.9, adult
CPT/HCPCS: 36415; 58552; 80048; 84703; 85025; 85027; 86850; 86900; 86901; 88307; A9270; J0131; J0690; J1100; J1170; J1885; J2001; J2250; J2270; J2405; J2704; J3490; J7120; 00944; J3010